=== PATIENT | male | born 1965 | race Hispanic/Latino ===

== ENCOUNTER 2019-04-01 10:18 | Emergency (ER) | payer BC, SELFPAY ==
--- NOTE | 2019-04-01 10:42 | RAD ---
LEFT HAND 3 VIEWS: Date: 04/01/19 HISTORY: Trauma to hand. FINDINGS: There are some fairly minimal arthritic changes of the hand noted. There are no signs of fracture or dislocation. IMPRESSION: No evidence of fracture. POS: [facility]
[2019-04-01] MEDS ORDERED: HYDROcodone/Acetaminophen 5/325 mg Tablet PO SCH (11:15)
[2019-04-01] MEDS ORDERED: Adacel (T-DAP) 0.5 ML SYRINGE ONE (11:18)
[2019-04-01] MEDS ORDERED: Bacitracin Zinc 1 Packet ONE (11:18)
[2019-04-01] MEDS ORDERED: HYDROcodone/Acetaminophen 5/325 mg Tablet ONE (11:18)
[2019-04-01] MEDS ORDERED: TETANUS AND DIPHTHERIA TOX/PF 0.5 ML DISP.SYRIN IM ONE (12:00)
== END 2019-04-01 11:41 | disposition home or self-care (01) ==
LOC: ERS 10:18
DX: S67.195A Crushing injury of left ring finger, initial encounter (principal); T23.222A Burn of second degree of single left finger (nail) except thumb, initial encounter; T31.0 Burns involving less than 10% of body surface; W23.0XXA Caught, crushed, jammed, or pinched between moving objects, initial encounter; X11.8XXA Contact with other hot tap-water, initial encounter; Y99.0 Civilian activity done for income or pay; Z23 Encounter for immunization
CPT/HCPCS: 90471; 90714; 90715; G0390